=== PATIENT | male | born 1960 | race Caucasian/White ===

== ENCOUNTER → 2016-11-14 | Day surgery (SDC) | payer OTHER ==
[~2016-11-14] MED LIST: ACETAMINOPHEN 1000 MG/100 ML VIAL ONE; BUPIVACAINE/EPINEPHRINE 0.25% PF 30 ML VIAL INFIL ONE; LACTATED RINGER'S 1,000 ML BAG IV ONE; MEPERIDINE HCL 25 MG/ML VIAL ONE; MIDAZOLAM HCL 2 MG/2 ML VIAL ONE; ONDANSETRON HCL 4 MG/2 ML VIAL IV PUSH ONE; PROPOFOL 100 MG/10 ML INJ IV ONE; ceFAZolin 2 GM PREMIX 50 ML ONE; oxyCODONE/ACETAMINOPHEN 5 MG/325 MG TAB ONE
--- NOTE | 2016-12-18 15:01 | PD.OP ---
cc: Leon Hicks MD Operative Report Date of Surgery: Nov 14, 2016 Preoperative Diagnosis: (1) Bilateral inguinal hernia Postoperative Diagnosis: (1) Bilateral inguinal hernia Procedure: Laparoscopic bilateral inguinal hernia repair with mesh Anesthesia: ISIDRA Surgeon: Leon Hicks Dyslexia Teacher(s): Staff Operation and Findings: Complications: None apparent Estimated blood loss: 10 cc Operative findings: The patient had bilateral inguinal hernias, larger on the left. Procedure in detail: The patient was taken to the operating room and placed in the supine position. General endotracheal anesthesia was induced. The abdomen was prepped and draped in usual sterile fashion and a surgical timeout performed to verify correct patient procedure and site. A 1 cm incision was made inferior to the umbilicus after infiltration of local anesthetic. Dissection carried down to the underlying fascia and the anterior fascia to the left of midline was incised vertically. The retrorectus space was developed and the dissecting balloon placed down towards the pubis. The extraperitoneal space was developed by insufflating the balloon. This trocar was then removed and the structural balloon was placed. The extraperitoneal space was insufflated to 11 mmHg with CO2 gas which the patient tolerated well. Next two 5 mm ports were placed in the lower midline. Attention was turned to the left inguinal area. Lateral dissection was carried out until the psoas muscle was identified. Medially Deonte's ligament was identified. The spermatic cord was evaluated and a moderate sized hernia was present and reduced. The entire inguinal floor was prepared for mesh placement. Ultrapro advanced mesh was cut to 12 x 15 cm size and was placed in the left inguinal area. It was attached at Deonte's ligament and superior laterally as well as of the rectus anteriorly with Capsure tacker. There was complete coverage of the entire inguinal floor including the indirect and direct spaces. Attention was then turned to the right inguinal area. Lateral dissection was carried out until the psoas muscle was identified. Medially Deonte's ligament was identified. The spermatic cord was evaluated and a small hernia was present and reduced. The entire inguinal floor was prepared for mesh placement. Ultrapro advanced mesh was cut to 12 x 15 cm size and was placed in the left inguinal area. A mesh was cut to size for the right inguinal floor. This was placed and secured in the same locations using the Capsure tacker. There is complete coverage of the right inguinal area. The extraperitoneal spaces and allowed to desufflate and trochars were removed. The anterior fascia was closed with running 2-0 Vicryl suture and skin with 4-0 Monocryl subcuticular as well as Dermabond. The patient tolerated the procedure well and was extubated and taken to PACU in stable condition. Leon Hicks MD Dec 18, 2016 15:01
== END | disposition home or self-care (01) ==
LOC: ESDC 10:59
PROVIDERS: ATTEND Surgery
DX: K40.20 Bilateral inguinal hernia, without obstruction or gangrene, not specified as recurrent (principal)
CPT/HCPCS: 00840; 49650; C1727; C1781; J0131; J0690; J2175; J2250; J2405; J3010; J7120